=== PATIENT | male | born 1950 | race Caucasian/White ===

== ENCOUNTER 2018-06-07 16:55 | Inpatient (IN) ==
--- NOTE | 2018-06-07 17:50 | ED ---
HPI General Chief Complaint: Abdominal Pain Stated Complaint: Upper Abd Pain/Rt Side x3Days Source: patient Mode of arrival: ambulatory Limitations: no limitations History of Present Illness HPI narrative: Patient presents with complaints of right upper quadrant abdominal pain. States his gallbladder. States he has a history of cirrhosis and hepatosplenomegaly from heavy drinking and read reports evaluation by his PCP on Saturday which is where he states he was told it was his gallbladder. States he was told to present to the emergency room with any persistent abdominal pain. Reports initial nausea at onset of pain on Saturday that is no longer present. Reports mild difficulty with constipation. Denies any chest pain shortness of breath or urinary symptoms. Last meal at noon. complaint: abdominal pain Onset (ago): day(s) (5-6) Pain Consistency: constant Location: RUQ Severity: moderate Severity scale (1-10): 5 Quality: aching and fullness Radiation: none Migration to: no migration Relieving factors: nothing Exacerbating factors: eating Context: other (Denies foreign travel new foods picnics sick contacts recent antibiotics hospitalization) Associated symptoms: constipation and other (Initially with nausea and an episode of vomiting, none since) Treatments prior to arrival: other (none) Related Data Home Medications Medication Instructions Recorded Confirmed glipizide 5 mg PO BID 06/07/18 06/07/18 insulin glargine [Lantus U-100 30 unit SUB-Q HS 06/07/18 06/07/18 Insulin] levothyroxine 100 mcg PO DAILY 06/07/18 06/07/18 losartan 50 mg PO DAILY 06/07/18 06/07/18 nadolol 200 mg PO BID 06/07/18 06/07/18 pravastatin 80 mg PO DAILY 06/07/18 06/07/18 rifaximin [Xifaxan] 550 mg PO BID 06/07/18 06/07/18 Allergies Allergy/AdvReac Type Severity Reaction Status Date / Time adhesive tape AdvReac Itching Verified 06/07/18 17:10 Review of Systems ROS: all other systems reviewed are negative [facility] Medical History Medical History Diabetes (Acute) Surgical History Surgical History Hx of appendectomy (Acute) Social History Social History Substance History: No History of Abuse Smoking Status: Never smoker How Often Do You Have a Drink Containing Alcohol: 2 to 4 times a month Recent Out of Country Travel within the Last 8 Weeks: No Immunization History Tetanus Immunization: Unsure Hx Influenza Vaccine This Season: Yes Exam Narrative Exam Narrative: GENERAL: Well-nourished, well-developed patient. SKIN: Focused skin assessment warm/dry. HEAD: Normocephalic. EYES: No scleral icterus. No injection or drainage. NECK: Supple, trachea midline. No JVD or lymphadenopathy. CARDIOVASCULAR: Regular rate and rhythm without murmurs, gallops, or rubs. RESPIRATORY: Breath sounds equal bilaterally. No accessory muscle use. GASTROINTESTINAL: Mildly distended, guarding with tenderness right upper quadrant, positive bowel sounds, no splenomegaly, unable to palpate the liver MUSCULOSKELETAL: No cyanosis, or edema. BACK: Nontender without obvious deformity. No CVA tenderness. Course Initial Documented Vital Signs Temperature 98.9 F 06/07/18 16:58 Pulse Rate 60 06/07/18 16:58 Respiratory Rate 18 06/07/18 16:58 Blood Pressure 144/66 H 06/07/18 16:58 Pulse Oximetry 97 06/07/18 16:58 Last Documented Vital Signs Temperature 98.9 F 06/07/18 16:58 Pulse Rate 60 06/07/18 16:58 Respiratory Rate 18 06/07/18 16:58 Blood Pressure 144/66 H 06/07/18 16:58 Pulse Oximetry 96 06/07/18 17:40 Medical Decision Making MDM Narrative Medical decision making narrative: Assessment and plan discussed with patient at bedside. Labs and imaging discussed with patient. Spoke with Dr. Mata was in agreement for admission and evaluation for surgical cholecystectomy. Spoke with Dr. Alvarado who is in agreement will admit. Medical Screen Exam Complete: Yes Emergency Medical Condition: Yes Medical Records Medical records reviewed: Yes I reviewed the patient's medical records. Lab Data Lab results reviewed: Yes I reviewed the patient's lab results. Result diagrams: 06/07/18 17:49 06/07/18 17:49 Lab Results 06/07/18 06/07/18 06/07/18 Range/Units 17:49 17:49 17:52 CBC w Diff Auto diff final WBC 13.2 H (4.0-11.0) th/mm3 RBC 3.71 L (4.50-5.90) mil/mm3 Hgb 12.8 L (13.0-17.0) gm/dL Hct 35.8 L (39.0-51.0) % MCV 96.5 (80.0-100.0) fL MCH 34.3 H (27.0-34.0) pg MCHC 35.6 (32.0-36.0) % RDW 12.8 (11.6-17.2) % Plt Count 118 L (150-450) th/mm3 MPV 10.0 (7.0-11.0) fL Neut % (Auto) 70.3 H (16.0-70.0) % Lymph % (Auto) 12.1 (9.0-44.0) % [place] % (Auto) 13.9 H (0.0-8.0) % Eos % (Auto) 2.7 (0.0-4.0) % Baso % (Auto) 1.0 (0.0-2.0) % Neut # (Auto) 9.3 H (1.8-7.7) th/mm3 Lymph # (Auto) 1.6 (1.0-4.8) th/mm3 [place] # (Auto) 1.8 H (0.0-0.9) th/mm3 Eos # (Auto) 0.4 (0.0-0.4) th/mm3 Baso # (Auto) 0.1 (0.0-0.2) th/mm3 WBC Differential . Differential Comment . Sodium 139 (136-145) meq/L Potassium 3.8 (3.5-5.1) meq/L Chloride 106 (98-107) meq/L Carbon Dioxide 24.3 (21.0-32.0) meq/L Anion Gap 9 (5-15) meq/L BUN 25 H (7-18) mg/dL Creatinine 1.30 (0.60-1.30) mg/dL Estimated GFR 55 L (>89) mL/min Random Glucose 116 H (74-106) mg/dL Lactic Acid 2.2 H (0.4-2.0) mmol/L Calcium 8.7 (8.5-10.1) mg/dL Total Bilirubin 1.9 H (0.2-1.0) mg/dL AST 30 (15-37) U/L ALT 41 (12-78) U/L Alkaline Phosphatase 88 (45-117) U/L Total Protein 7.6 (6.4-8.2) g/dL Albumin 3.7 (3.4-5.0) g/dL Lipase 180 (73-393) U/L Ur Collection Type Urine Color (Yellw/Straw) Urine Clarity (Clear) Urine pH (5.0-8.5) Ur Specific [place] (1.002-1.035) Urine Protein (Neg-Trace) mg/dL Urine Glucose (UA) (Negative) mg/dL Urine Ketones (Negative) mg/dL Urine Occult Blood (Negative) Urine Nitrate (Negative) Urine Bilirubin (Negative) Urine Urobilinogen (Less than 2) mg/dL Ur Leukocyte Esterase (Negative) Ur Squamous Epith Cells (0-5) /hpf Amorphous Sediment (None) /hpf Micro UA Comment Ur Microscopic Review Urine Culture Comments Urine Collection Time hours 06/07/18 Range/Units 17:53 CBC w Diff WBC (4.0-11.0) th/mm3 RBC (4.50-5.90) mil/mm3 Hgb (13.0-17.0) gm/dL Hct (39.0-51.0) % MCV (80.0-100.0) fL MCH (27.0-34.0) pg MCHC (32.0-36.0) % RDW (11.6-17.2) % Plt Count (150-450) th/mm3 MPV (7.0-11.0) fL Neut % (Auto) (16.0-70.0) % Lymph % (Auto) (9.0-44.0) % [place] % (Auto) (0.0-8.0) % Eos % (Auto) (0.0-4.0) % Baso % (Auto) (0.0-2.0) % Neut # (Auto) (1.8-7.7) th/mm3 Lymph # (Auto) (1.0-4.8) th/mm3 [place] # (Auto) (0.0-0.9) th/mm3 Eos # (Auto) (0.0-0.4) th/mm3 Baso # (Auto) (0.0-0.2) th/mm3 WBC Differential Differential Comment Sodium (136-145) meq/L Potassium (3.5-5.1) meq/L Chloride (98-107) meq/L Carbon Dioxide (21.0-32.0) meq/L Anion Gap (5-15) meq/L BUN (7-18) mg/dL Creatinine (0.60-1.30) mg/dL Estimated GFR (>89) mL/min Random Glucose (74-106) mg/dL Lactic Acid (0.4-2.0) mmol/L Calcium (8.5-10.1) mg/dL Total Bilirubin (0.2-1.0) mg/dL AST (15-37) U/L ALT (12-78) U/L Alkaline Phosphatase (45-117) U/L Total Protein (6.4-8.2) g/dL Albumin (3.4-5.0) g/dL Lipase (73-393) U/L Ur Collection Type Clean catch Urine Color Yellow (Yellw/Straw) Urine Clarity Clear (Clear) Urine pH 6.0 (5.0-8.5) Ur Specific [place] 1.010 (1.002-1.035) Urine Protein Negative (Neg-Trace) mg/dL Urine Glucose (UA) Negative (Negative) mg/dL Urine Ketones Negative (Negative) mg/dL Urine Occult Blood Negative (Negative) Urine Nitrate Negative (Negative) Urine Bilirubin Negative (Negative) Urine Urobilinogen 4.0 H (Less than 2) mg/dL Ur Leukocyte Esterase Negative (Negative) Ur Squamous Epith Cells 0-5 (0-5) /hpf Amorphous Sediment Few H (None) /hpf Micro UA Comment Culture not ind Ur Microscopic Review Microscopic reviewed Urine Culture Comments Culture not ind Urine Collection Time 1755 hours Imaging Data Radiologist's impression: Abdomen/Pelvis CT 06/07/18 17:40 CONCLUSION: 1. Abnormal hepatic texture characteristic of chronic parenchymal liver disease possibly cirrhosis. 2. Free fluid along the anterolateral margin of the liver characteristic of mild ascites. 3. Ellie hepatis lymphadenopathy 4. Distended gallbladder with mild pericholecystic inflammation. Acute cholecystitis needs to be considered. 5. Splenomegaly 6. Mesenteric vascular congestion and mild of adenopathy Discharge Plan Discharge Disposition Patient Disposition: 30 Still Patient Discharge Details Diagnosis: Cholecystitis Physicians Team ED Provider: Orlando Francois Primary Care Provider: Yaw Ugarte Rxs /Orders / Referrals /Forms Prescriptions: No Action losartan 50 mg Tablet 50 mg PO DAILY RF: 0 insulin glargine [Lantus U-100 Insulin] 100 unit/mL Solution 30 unit SUB-Q HS RF: 0 pravastatin 80 mg Tablet 80 mg PO DAILY RF: 0 glipizide 5 mg Tablet 5 mg PO BID RF: 0 levothyroxine 100 mcg Capsule 100 mcg PO DAILY RF: 0 nadolol 20 mg Tablet 200 mg PO BID RF: 0 rifaximin [Xifaxan] 550 mg Tablet 550 mg PO BID RF: 0 Discharge Interventions Interventions: Vital Signs Last Done: 06/07/18 16:58 Status ED Status: With Nurse
[2018-06-07 17:56] LABS: Baso # (Auto) 0.1 th/mm3 (0.0-0.2); Eos # (Auto) 0.4 th/mm3 (0.0-0.4); Eos % (Auto) 2.7 % (0.0-4.0); Hematocrit 35.8 % (39.0-51.0); Hemoglobin 12.8 gm/dL (13.0-17.0); Lymph # (Auto) 1.6 th/mm3 (1.0-4.8); Lymph % (Auto) 12.1 % (9.0-44.0); Mean Corpuscular HGB Conc 35.6 % (32.0-36.0); Mean Corpuscular Hemoglobin 34.3 pg (27.0-34.0); Mean Corpuscular Volume 96.5 fL (80.0-100.0); Mono # (Auto) 1.8 th/mm3 (0.0-0.9); Mono % (Auto) 13.9 % (0.0-8.0); Neut # (Auto) 9.3 th/mm3 (1.8-7.7); Neut % (Auto) 70.3 % (16.0-70.0); Platelet Count 118 th/mm3 (150-450); Red Blood Count 3.71 mil/mm3 (4.50-5.90); Red Cell Distribution Width 12.8 % (11.6-17.2); White Blood Count 13.2 th/mm3 (4.0-11.0)
[2018-06-07 17:57] LABS: Bilirubin,Urine Negative (Negative); Clarity,Urine Clear (Clear); Color,Urine Yellow (Yellw/Straw); Glucose,Urine (UA) Negative (Negative); Leukocyte Esterase,Urine Negative (Negative); Nitrite,Urine Negative (Negative)
[2018-06-07 18:01] LABS: Collection Time,Urine 1755 hours
[2018-06-07 18:02] LABS: Amorphous Sediment,Urine Few /hpf; Squamous Epithelial Cell,Urine 0-5 /hpf (0-5)
[2018-06-07 18:07] LABS: Chloride 106 meq/L (98-107); Potassium 3.8 meq/L (3.5-5.1); Sodium 139 meq/L (136-145)
[2018-06-07 18:10] LABS: Calcium 8.7 mg/dL (8.5-10.1)
[2018-06-07 18:11] LABS: Albumin 3.7 g/dL (3.4-5.0); Anion Gap 9 meq/L (5-15); Blood Urea Nitrogen 25 mg/dL (7-18); Carbon Dioxide 24.3 meq/L (21.0-32.0); Glucose,Random 116 mg/dL (74-106); Lipase 180 U/L (73-393)
[2018-06-07 18:13] LABS: Alanine Aminotransferase 41 U/L (12-78); Aspartate Aminotransferase 30 U/L (15-37); Glomerular Filtration Rate 55 mL/min (>89)
[2018-06-07 18:15] LABS: Total Protein 7.6 g/dL (6.4-8.2)
[2018-06-07 18:16] LABS: Alkaline Phosphatase 88 U/L (45-117)
--- NOTE | 2018-06-07 19:51 | CT ---
EXAM DATE: 06/07/2018 7:36 PM EDT AGE/SEX: 67 years / Male INDICATIONS: Right upper quadrant pain. CLINICAL DATA: This is the patient's initial encounter. Patient reports that signs and symptoms have been present for 1 day and indicates a pain score of 10/10. MEDICAL/SURGICAL HISTORY: Diabetes. Appendectomy. ORAL CONTRAST: No oral contrast ingested. RADIATION DOSE: 19.17 CTDI (mGy) COMPARISON: No prior exams available for comparison. TECHNIQUE: Multiple contiguous axial images were obtained through the abdomen and pelvis following b olus infusion of 68 ml Omnipaque 350 (iohexol) nonionic water-soluble contrast as a single exam dos e. No oral contrast ingested. Using automated exposure control and adjustment of the mA and/or kV ac cording to patient size, radiation dose was kept as low as reasonably achievable to obtain optimal di agnostic quality images. DICOM format image data is available electronically for review and comparis on. FINDINGS: Lower Lungs: Chronic lung changes are noted. The heart is moderately enlarged. Coronary arteries are heavily calcified. Liver: Small amount of fluid is seen along the right anterolateral capsular margin of the liver. Live r has a slight heterogeneous texture. The gallbladder is distended and demonstrates mild wall thicken ing and pericholecystic fluid and stranding. Multiple mildly enlarged lymph nodes are identified in t he ellie hepatis. There is no significant biliary distention or discrete hepatic mass.. Spleen: Mildly enlarged. Pancreas: Unremarkable without mass or calcification. Kidneys: Normal in size and shape. No evidence of mass or hydronephrosis. Adrenal Glands: Unremarkable. Aorta: The aorta and proximal iliac vessels are grossly unremarkable without aneurysmal dilation. Bowel/Mesentery: Diffuse vascular prominence and multiple lymph nodes are seen throughout the mesente ry. The bowel loops are otherwise grossly unremarkable. The cecum and sigmoid colon have a normal con figuration. Abdominal Wall: Intact. Retroperitoneum: No evidence of adenopathy in the retrocrural, para-aortic, or deep pelvic regions. Bladder: Contours are smooth. Reproductive Organs: No abnormal masses or calcifications seen. Inguinal: The inguinal region is unremarkable without evidence of adenopathy. Bony Structures: Unremarkable. CONCLUSION: 1. Abnormal hepatic texture characteristic of chronic parenchymal liver disease possibly cirrhosis. 2. Free fluid along the anterolateral margin of the liver characteristic of mild ascites. 3. Ellie hepatis lymphadenopathy 4. Distended gallbladder with mild pericholecystic inflammation. Acute cholecystitis needs to be con sidered. 5. Splenomegaly 6. Mesenteric vascular congestion and mild of adenopathy Electronically signed by: Giorgio Brown MD 06/07/2018 7:49 PM EDT
[2018-06-07] MEDS ORDERED: Bisacodyl 10 MG Supp RECTAL PRN (20:29)
[2018-06-07 21:00] LABS: Activated Partial Thrombo Time 31.3 sec (24.3-30.1); INR 1.2 Ratio; Prothrombin Time 11.9 sec (9.8-11.6)
[2018-06-07] MEDS ORDERED: Piperacil/Tazo 3.375 GM Premix 50 ML IV.SIG SCH (21:15)
[2018-06-07] MEDS: Senna/Docusate Sodium 8.6/50 MG Tablet PO SCH (23:20)
[2018-06-07] MEDS: KCL 20 mEq/D5W/NaCl 0.45% Inj 1,000 ML IV.CONT SCH (23:20)
[2018-06-07] MEDS: Sod Chloride 0.9% Inj 1,000 ML IV.CONT SCH (23:50)
[2018-06-07] MEDS: Piperacil/Tazo 4.5 GM Premix 4.5 GM/100 ML BAG IV.SIG SCH (23:50)
[2018-06-08] MEDS: Morphine Inj 4 MG/ML Vial IV.PUSH PRN ×4 (01:55→23:32)
[2018-06-08] MEDS: Piperacil/Tazo 4.5 GM Premix 4.5 GM/100 ML BAG IV.SIG SCH ×5 (03:02→23:32)
[2018-06-08 07:05] LABS: Baso % (Auto) 0.3 % (0.0-2.0); Eos # (Auto) 0.2 th/mm3 (0.0-0.4); Eos % (Auto) 1.8 % (0.0-4.0); Hematocrit 35.3 % (39.0-51.0); Hemoglobin 12.2 gm/dL (13.0-17.0); Lymph # (Auto) 1.3 th/mm3 (1.0-4.8); Lymph % (Auto) 9.5 % (9.0-44.0); Mean Corpuscular HGB Conc 34.4 % (32.0-36.0); Mean Corpuscular Volume 95.8 fL (80.0-100.0); Mean Platelet Volume 10.6 fL (7.0-11.0); Mono # (Auto) 1.7 th/mm3 (0.0-0.9); Mono % (Auto) 12.9 % (0.0-8.0); Neut # (Auto) 10.2 th/mm3 (1.8-7.7); Neut % (Auto) 75.5 % (16.0-70.0); Platelet Count 128 th/mm3 (150-450); Red Blood Count 3.69 mil/mm3 (4.50-5.90); Red Cell Distribution Width 12.7 % (11.6-17.2); White Blood Count 13.4 th/mm3 (4.0-11.0)
[2018-06-08 07:17] LABS: Chloride 109 meq/L (98-107); Potassium 3.5 meq/L (3.5-5.1); Sodium 142 meq/L (136-145)
[2018-06-08] MEDS: KCL 20 mEq/D5W/NaCl 0.45% Inj 1,000 ML IV.CONT SCH ×2 (07:20→15:44)
[2018-06-08 07:21] LABS: Albumin 3.2 g/dL (3.4-5.0); Anion Gap 9 meq/L (5-15); Blood Urea Nitrogen 21 mg/dL (7-18); Calcium 8.3 mg/dL (8.5-10.1); Carbon Dioxide 23.8 meq/L (21.0-32.0); Glucose,Random 57 mg/dL (74-106)
[2018-06-08 07:24] LABS: Alanine Aminotransferase 38 U/L (12-78); Aspartate Aminotransferase 29 U/L (15-37); Glomerular Filtration Rate 55 mL/min (>89)
[2018-06-08 07:26] LABS: Total Protein 7.2 g/dL (6.4-8.2)
[2018-06-08 07:27] LABS: Alkaline Phosphatase 90 U/L (45-117)
[2018-06-08] MEDS: Senna/Docusate Sodium 8.6/50 MG Tablet PO SCH ×2 (08:45→20:45)
--- NOTE | 2018-06-08 09:55 | P.HP ---
History of Present Illness Primary Care Physician: Yaw Ugarte DO Chief Complaint: Right upper quadrant abdominal pain History of Present Illness: This is a 67-year-old male patient with a known medical history of cirrhosis and hepatosplenomegaly with history of heavy alcohol abuse who presented to the ED with complaints of right upper quadrant abdominal pain. Patient states around Saturday morning after he ate some eggs with butter he developed a sudden right upper quadrant pain. He states that he been unable to eat for the past 4 days without significant pain and associated nausea. He denies any vomiting. Patient does admit to fever at home of 101 at its max. Does state he was evaluated by his PCP, Dr. Ugarte, on Saturday when at that time he was told this may be a gallbladder issue. At that time he was sent home and encouraged to come to the emergency room if abdominal pain persisted. Denies any recent antibiotic use. Patient denies any recent black or bloody stools. Last colonoscopy was 2 years ago with findings significant for polyps. Patient does admit to history of cirrhosis and hepatosplenomegaly secondary to history of chronic alcohol abuse. Patient does follow with Dr. Garcia for his chronic liver disease and actually has a colonoscopy scheduled for June. He states he has cut down his alcohol to 3 glasses per week. Patient denies any recent illness including chest pain, chills, cough, shortness breath, diarrhea or dysuria. Upon presentation an abdominal/pelvis CT was done showing concern for acute cholecystitis. General surgery has been consulted for evaluation. - Diagnosis (1) Cholecystitis (2) Cirrhosis (3) Hepatosplenomegaly (4) History of alcohol abuse (5) Diabetes type 2, controlled Inpatient Certification: I certify that the inpatient services were ordered in accordance with Medicare regulations governing the order. This includes certification that hospital inpatient services are reasonable and necessary and in the case of services not specified as inpatient-only under 42 CFR 419.22(n), that they are appropriately provided as inpatient services in accordance to with the 2-midnight benchmark under 43 CFR 412.3(e) Estimated Total Length of Stay (Days): 2 Plans for Post Hospital Care: Not yet determined Review of Systems All other systems reviewed negative except as stated in [facility] - History History Provided By: Patient - Medical History Medical History: Medical History (Last Updated 06/08/18 @ 10:38 by Precious Cai) Cirrhosis Diabetes Hepatosplenomegaly History of alcohol abuse - Surgical History Surgical History: Surgical History (Last Updated 06/08/18 @ 10:37 by Precious Cai) History of arthroplasty of right knee History of hand surgery Hx of appendectomy - Family History Family History: Family History (Last Updated 06/08/18 @ 10:38 by Precious Cai) Father Cardiovascular disease Mother Diabetes - Tobacco History Second Hand Smoke Exposure: No Smoking Status: Never smoker - Alcohol History How Often Do You Have a Drink Containing Alcohol: 2 to 3 times a week - Substance Use History Substance History: Past History - Travel History History of Recent Travel: No Recent Travel in the [place] Within the Last 8 Weeks: No Recent Travel Out of the Country Within the Last 8 Weeks: No - Immunization History Tetanus Immunization: <5 Years Hx Influenza Vaccine This Season: No Medications and Allergies Active Medications: Active Medications Al Hydroxide/Mg Hydroxide (Milk Of Magnesia Liq) 30 ml PO Q12H PRN PRN Reason: Mild Constipation Bisacodyl (Dulcolax Supp) 10 mg RECTAL DAILY PRN PRN Reason: SEVERE CONSITIPATION Sodium Chloride (Ns Inj) 1,000 mls @ 100 mls/hr IV.CONT .Q10H [facility] Last Admin: 06/07/18 23:50 Dose: 100 mls/hr Potassium Chloride/Dextrose/Sod Cl (D5w/1/2ns + Kcl 20 Meq Inj) 1,000 mls @ 100 mls/hr IV.CONT .Q10H [facility] Last Admin: 06/08/18 07:20 Dose: Not Given Piperacillin/Tazobactam/Dextrose (Zosyn 4.5 Gm Premix) 4.5 gm in 100 mls @ 200 mls/hr IV.SIG Q6HR [facility] Last Infusion: 06/08/18 07:00 Dose: Infused Lactulose (Lactulose Liq) 30 ml PO DAILY PRN PRN Reason: SEVERE CONSITIPATION Morphine Sulfate (Morphine Inj) 2 mg IV.PUSH Q4H PRN PRN Reason: PAIN 6-10 Last Admin: 06/08/18 06:29 Dose: 2 mg Ondansetron HCl (Zofran Inj) 4 mg IV.PUSH Q6H PRN PRN Reason: NAUSEA OR VOMITING Senna/Docusate Sodium (Tia-Colace) 1 tab PO BID [facility] Last Admin: 06/08/18 08:45 Dose: Not Given Sennosides (Senokot) 17.2 mg PO Q12H PRN PRN Reason: Moderate Constipation Sodium Chloride (Ns Flush) 2 ml IV.FLUSH PRN PRN PRN Reason: FLUSH AFTER USING IV ACCESS Allergies Allergy/AdvReac Type Severity Reaction Status Date / Time adhesive tape AdvReac Itching Verified 06/07/18 17:10 Home Medications Medication Instructions Recorded Confirmed Type glipizide 5 mg PO BID 06/07/18 06/07/18 History insulin glargine [Lantus U-100 30 unit SUB-Q HS 06/07/18 06/07/18 History Insulin] levothyroxine 100 mcg PO DAILY 06/07/18 06/07/18 History losartan 50 mg PO DAILY 06/07/18 06/07/18 History nadolol 200 mg PO BID 06/07/18 06/07/18 History pravastatin 80 mg PO DAILY 06/07/18 06/07/18 History rifaximin [Xifaxan] 550 mg PO BID 06/07/18 06/07/18 History Exam Vital signs: Vital Signs 06/07/18 16:58 06/07/18 17:40 06/07/18 20:41 Temperature 98.9 F Pulse Rate 60 Respiratory Rate 18 15 Blood Pressure 144/66 H Pulse Oximetry 97 96 06/07/18 22:43 06/07/18 23:30 06/08/18 04:00 Temperature 97.4 F L 98 F Pulse Rate 78 67 64 Respiratory Rate 14 20 20 Blood Pressure 147/74 H 153/70 H 112/62 Pulse Oximetry 97 97 06/08/18 08:00 Temperature 98.2 F Pulse Rate 57 L Respiratory Rate 12 Blood Pressure 108/67 Pulse Oximetry 93 L Intake & Output 06/07/18 06/08/18 06/08/18 18:59 06:59 18:59 Intake Total 100 / 100 100 / 100 Balance 100 / 100 100 / 100 Weight 93.6 kg 94.2 kg Intake: IV 100 / 100 100 / 100 Zosyn 4.5 GM Premix 4.5 gm In 100 / 100 100 / 100 100 ml @ 200 mls/hr IV.SIG Q6HR [facility] Rx#:[id number] Other: Weight On Admission 94.4 kg Narrative: GENERAL: Well-developed, well-nourished patient in NAD. SKIN: Warm and dry. No rash. HEAD: Normocephalic. Atraumatic. EYES: Pupils equal and round. No scleral icterus. No injection or drainage. ENT: No nasal bleeding or discharge. Mucous membranes pink and moist. NECK: Supple. Trachea midline. CARDIOVASCULAR: Regular rate and rhythm. S1, S2 noted. No murmur appreciated. RESPIRATORY: No accessory muscle use. Clear to auscultation. Breath sounds equal bilaterally. GASTROINTESTINAL: Abdomen firm, tender to palpation of right upper quadrant. Normoactive bowel sounds x4. Liver border felt and enlarged. Previous appendectomy scar noted. MUSCULOSKELETAL: No obvious deformities. Extremities without clubbing, cyanosis , or edema. NEUROLOGICAL: Awake and alert. No obvious cranial nerve deficits. Motor grossly within normal limits. 5/5 muscle strength in bilateral upper and lower extremities. Normal speech. PSYCHIATRIC: Appropriate mood and affect; insight and judgment normal. Results - Labs CBC & Chem 7: 06/08/18 06:35 06/08/18 06:35 Labs: Laboratory Results - last 24 hr 06/07/18 06/07/18 06/07/18 17:49 17:49 17:52 CBC w Diff Auto diff final WBC 13.2 H RBC 3.71 L Hgb 12.8 L Hct 35.8 L MCV 96.5 MCH 34.3 H MCHC 35.6 RDW 12.8 Plt Count 118 L MPV 10.0 Neut % (Auto) 70.3 H Lymph % (Auto) 12.1 [place] % (Auto) 13.9 H Eos % (Auto) 2.7 Baso % (Auto) 1.0 Neut # (Auto) 9.3 H Lymph # (Auto) 1.6 [place] # (Auto) 1.8 H Eos # (Auto) 0.4 Baso # (Auto) 0.1 WBC Differential . Differential Comment . PT INR APTT Sodium 139 Potassium 3.8 Chloride 106 Carbon Dioxide 24.3 Anion Gap 9 BUN 25 H Creatinine 1.30 Estimated GFR 55 L Random Glucose 116 H Lactic Acid 2.2 H Calcium 8.7 Total Bilirubin 1.9 H AST 30 ALT 41 Alkaline Phosphatase 88 Total Protein 7.6 Albumin 3.7 Lipase 180 Ur Collection Type Urine Color Urine Clarity Urine pH Ur Specific [place] Urine Protein Urine Glucose (UA) Urine Ketones Urine Occult Blood Urine Nitrate Urine Bilirubin Urine Urobilinogen Ur Leukocyte Esterase Ur Squamous Epith Cells Amorphous Sediment Micro UA Comment Ur Microscopic Review Urine Culture Comments Urine Collection Time 06/07/18 06/07/18 06/08/18 17:53 20:20 06:35 CBC w Diff Auto diff final WBC 13.4 H RBC 3.69 L Hgb 12.2 L Hct 35.3 L MCV 95.8 MCH 33.0 MCHC 34.4 RDW 12.7 Plt Count 128 L MPV 10.6 Neut % (Auto) 75.5 H Lymph % (Auto) 9.5 [place] % (Auto) 12.9 H Eos % (Auto) 1.8 Baso % (Auto) 0.3 Neut # (Auto) 10.2 H Lymph # (Auto) 1.3 [place] # (Auto) 1.7 H Eos # (Auto) 0.2 Baso # (Auto) 0.0 WBC Differential . Differential Comment . PT 11.9 H INR 1.2 APTT 31.3 H Sodium Potassium Chloride Carbon Dioxide Anion Gap BUN Creatinine Estimated GFR Random Glucose Lactic Acid Calcium Total Bilirubin AST ALT Alkaline Phosphatase Total Protein Albumin Lipase Ur Collection Type Clean catch Urine Color Yellow Urine Clarity Clear Urine pH 6.0 Ur Specific [place] 1.010 Urine Protein Negative Urine Glucose (UA) Negative Urine Ketones Negative Urine Occult Blood Negative Urine Nitrate Negative Urine Bilirubin Negative Urine Urobilinogen 4.0 H Ur Leukocyte Esterase Negative Ur Squamous Epith Cells 0-5 Amorphous Sediment Few H Micro UA Comment Culture not ind Ur Microscopic Review Microscopic reviewed Urine Culture Comments Culture not ind Urine Collection Time 1755 06/08/18 06:35 CBC w Diff WBC RBC Hgb Hct MCV MCH MCHC RDW Plt Count MPV Neut % (Auto) Lymph % (Auto) [place] % (Auto) Eos % (Auto) Baso % (Auto) Neut # (Auto) Lymph # (Auto) [place] # (Auto) Eos # (Auto) Baso # (Auto) WBC Differential Differential Comment PT INR APTT Sodium 142 Potassium 3.5 Chloride 109 H Carbon Dioxide 23.8 Anion Gap 9 BUN 21 H Creatinine 1.30 Estimated GFR 55 L Random Glucose 57 L Lactic Acid Calcium 8.3 L Total Bilirubin 2.4 H AST 29 ALT 38 Alkaline Phosphatase 90 Total Protein 7.2 Albumin 3.2 L Lipase Ur Collection Type Urine Color Urine Clarity Urine pH Ur Specific [place] Urine Protein Urine Glucose (UA) Urine Ketones Urine Occult Blood Urine Nitrate Urine Bilirubin Urine Urobilinogen Ur Leukocyte Esterase Ur Squamous Epith Cells Amorphous Sediment Micro UA Comment Ur Microscopic Review Urine Culture Comments Urine Collection Time - Imaging Impressions Abdomen/Pelvis CT 06/07/18 17:40 CONCLUSION: 1. Abnormal hepatic texture characteristic of chronic parenchymal liver disease possibly cirrhosis. 2. Free fluid along the anterolateral margin of the liver characteristic of mild ascites. 3. Sharon hepatis lymphadenopathy 4. Distended gallbladder with mild pericholecystic inflammation. Acute cholecystitis needs to be considered. 5. Splenomegaly 6. Mesenteric vascular congestion and mild of adenopathy Caprini VTE Risk Assessment Caprini VTE Risk Assessment: Moderate/High Risk (score >= 2) Caprini Risk Assessment Model: Point Value = 1 Point Value = 2 Point Value = 3 Point Value = 5 Age 41-60 Minor surgery BMI > 25 kg/m2 Swollen legs Varicose veins or History of unexplained or recurrent spontaneous Oral contraceptives or hormone replacement Sepsis (< 1 month) Serious lung disease, including pneumonia (< 1 month) Abnormal pulmonary function Acute myocardial infarction Congestive heart failure (< 1 month) History of inflammatory bowel disease Medical patient at bed rest Age 61-74 Arthroscopic surgery Major open surgery (> 45 min) Laparoscopic surgery (> 45 min) Malignancy Confined to bed (> 72 hours) Immobilizing plaster cast Central venous access Age >= 75 History of VTE Family history of VTE Factor V Leiden Prothrombin [id number] Lupus anticoagulant Anticardiolipin antibodies Elevated serum homocysteine Heparin-induced thrombocytopenia Other congenital or acquired thrombophilia Stroke (< 1 month) Elective arthroplasty Hip, pelvis, or leg fracture Acute spinal cord injury (< 1 month) Prophylaxis Regimen: Total Risk Factor Score Risk Level Prophylaxis Regimen 0-1 Low Early ambulation 2 Moderate Order ONE of the following: *Sequential Compression Device (SCD) *Heparin 5000 units SQ BID 3-4 Higher Order ONE of the following medications: *Heparin 5000 units SQ TID *Enoxaparin/Lovenox 40 mg SQ daily (WT < 150 kg, CrCl > 30 mL/min) *Enoxaparin/Lovenox 30 mg SQ daily (WT < 150 kg, CrCl > 10-29 mL/min) *Enoxaparin/Lovenox 30 mg SQ BID (WT < 150 kg, CrCl > 30 mL/min) AND/OR *Sequential Compression Device (SCD) 5 or more Highest Order ONE of the following medications: *Heparin 5000 units SQ TID (Preferred with Epidurals) *Enoxaparin/Lovenox 40 mg SQ daily (WT < 150 kg, CrCl > 30 mL/min) *Enoxaparin/Lovenox 30 mg SQ daily (WT < 150 kg, CrCl > 10-29 mL/min) *Enoxaparin/Lovenox 30 mg SQ BID (WT < 150 kg, CrCl > 30 mL/min) AND *Sequential Compression Device (SCD) Assessment and Plan - Assessment (1) Cholecystitis Code(s): K81.9 - Cholecystitis, unspecified Status: Acute (2) Cirrhosis Code(s): K74.60 - Unspecified cirrhosis of liver Status: Acute (3) Hepatosplenomegaly Code(s): R16.2 - Hepatomegaly with splenomegaly, not elsewhere classified Status: Acute (4) History of alcohol abuse Code(s): Z87.898 - Personal history of other specified conditions Status: Acute (5) Diabetes type 2, controlled Code(s): E11.9 - Type 2 diabetes mellitus without complications Status: Acute - Plan This is a pleasant 67-year-old male patient with: Acute cholecystis -Patient presented with complaints of right upper quadrant pain x 4 days as well as subjective fever of 101 at home. -Abdominal/pelvis CT reviewed showing chronic liver disease and cirrhosis, mild ascited, sharon hepatis lymphadenopathy, splenomegaly and mesenteric vascular congestion. -Will obtain liver ultrasound for further evaluation, pending. Follow-up findings. -Patient with leukocytosis, white blood cell 13,000. Elevated total bilirubin 2.4. AST, ALT and alk phos normal. -Was placed on IV Zosyn in ED. Will continue for now. -General surgery consulted, input and recommendations pending. -Control pain, morphine IV available as needed per pain scale. -Zofran IV available for nausea as needed. History of cirrhosis and hepatosplenomegaly History of alcohol abuse -CT findings as above. -Will continue on home medications including nadolol, rifaximin. -Supportive care. Type 2 diabetes mellitus, controlled and chronic -Accu-Chek before meals at bedtime, sliding scale, cover as needed. Monitor blood sugar trends. -Evaluate for hypoglycemia, n.p.o. status. Continue IV dextrose for now. -Hold home glipizide. Hypothyroidism, chronic: Will continue home thyroxine. History of hyperlipidemia: On statin at home. Will hold for now. DVT Prophylaxis: SCDs.
[2018-06-08] MEDS: Sod Chloride 0.9% Inj 1,000 ML IV.CONT SCH (09:59)
[2018-06-08] MEDS ORDERED: Dextrose 50% in Water 50 ML Vial IV.PUSH PRN (10:54)
[2018-06-08] MEDS ORDERED: Nadolol 20 MG Tablet PO SCH (11:00)
[2018-06-08] MEDS: rifAXIMin 550 MG Tablet PO SCH ×2 (12:22→20:44)
[2018-06-08] MEDS: Insulin NovoLOG Aspart Correctional Sugar Inj SQ SCH ×3 (12:29→20:50)
--- NOTE | 2018-06-08 12:48 | P.CONGS ---
[facility] Gen Surgery Consult Note Consult date: 06/08/18 Narrative: The patient is a 67-year-old male who developed severe right upper quadrant abdominal pain on Saturday after eating eggs. The pain has persisted and he presented to the emergency department yesterday. He has never had a similar pain in the past. He did see his primary care physician later in the week who felt he likely had gallbladder disease and recommended to present to the emergency department if the pain worsened. The patient was noted to have leukocytosis as well as a CT of the abdomen and pelvis which appears to be consistent with acute cholecystitis. Past surgical history includes open appendectomy. The patient has a history of alcohol abuse and has known liver disease. 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 Bilirubin is mildly elevated although this could be partially secondary to cholecystitis. PT/INR mildly elevated as well. Review of Systems All other systems reviewed negative except as stated in [facility] PMFSH - History History Provided By: Patient - Medical History Medical History: Medical History (Last Updated 06/08/18 @ 10:38 by Precious Cai) Cirrhosis Diabetes Hepatosplenomegaly History of alcohol abuse - Surgical History Surgical History: Surgical History (Last Updated 06/08/18 @ 10:37 by Precious Cai) History of arthroplasty of right knee History of hand surgery Hx of appendectomy - Family History Family History: Family History (Last Updated 06/08/18 @ 10:38 by Precious Cai) Father Cardiovascular disease Mother Diabetes - Tobacco History Second Hand Smoke Exposure: No Smoking Status: Never smoker - Alcohol History How Often Do You Have a Drink Containing Alcohol: 2 to 3 times a week - Substance Use History Substance History: Past History - Travel History History of Recent Travel: No Recent Travel in the [place] Within the Last 8 Weeks: No Recent Travel Out of the Country Within the Last 8 Weeks: No - Immunization History Tetanus Immunization: <5 Years Hx Influenza Vaccine This Season: No Medications and Allergies Active Medications: Active Medications Al Hydroxide/Mg Hydroxide (Milk Of Magntrent Liq) 30 ml PO Q12H PRN PRN Reason: Mild Constipation Bisacodyl (Dulcolax Supp) 10 mg RECTAL DAILY PRN PRN Reason: SEVERE CONSITIPATION Dextrose (D50w Vial) 50 ml IV.PUSH UNSCH PRN PRN Reason: PER HYPOGLYCEMIA PROTOCOL Last Admin: 06/08/18 12:18 Dose: 50 ml Glucagon (Glucagon Inj) 1 mg OTHER PRN PRN PRN Reason: for Hypoglycemia Protocol Sodium Chloride (Ns Inj) 1,000 mls @ 100 mls/hr IV.CONT .Q10H [facility] Last Admin: 06/08/18 09:59 Dose: 100 mls/hr Potassium Chloride/Dextrose/Sod Cl (D5w/1/2ns + Kcl 20 Meq Inj) 1,000 mls @ 100 mls/hr IV.CONT .Q10H [facility] Last Admin: 06/08/18 07:20 Dose: Not Given Piperacillin/Tazobactam/Dextrose (Zosyn 4.5 Gm Premix) 4.5 gm in 100 mls @ 200 mls/hr IV.SIG Q6HR [facility] Last Admin: 06/08/18 12:23 Dose: 200 mls/hr Insulin Aspart (Novolog Insulin Correctional Sugar Inj) 0 unit SQ ACHS [facility]; Protocol Last Admin: 06/08/18 12:29 Dose: Not Given Lactulose (Lactulose Liq) 30 ml PO DAILY PRN PRN Reason: SEVERE CONSITIPATION Levothyroxine Sodium (Synthroid) 100 mcg PO DAILY@0600 [facility] Losartan Potassium (Cozaar) 50 mg PO DAILY [facility] Last Admin: 06/08/18 12:22 Dose: 50 mg Morphine Sulfate (Morphine Inj) 2 mg IV.PUSH Q4H PRN PRN Reason: PAIN 6-10 Last Admin: 06/08/18 06:29 Dose: 2 mg Nadolol (Corgard) 20 mg PO BID [facility] Ondansetron HCl (Zofran Inj) 4 mg IV.PUSH Q6H PRN PRN Reason: NAUSEA OR VOMITING Rifaximin (Xifaxan) 550 mg PO BID [facility] Last Admin: 06/08/18 12:22 Dose: 550 mg Senna/Docusate Sodium (Tia-Colace) 1 tab PO BID [facility] Last Admin: 06/08/18 08:45 Dose: Not Given Sennosides (Senokot) 17.2 mg PO Q12H PRN PRN Reason: Moderate Constipation Sodium Chloride (Ns Flush) 2 ml IV.FLUSH PRN PRN PRN Reason: FLUSH AFTER USING IV ACCESS Allergies Allergy/AdvReac Type Severity Reaction Status Date / Time adhesive tape AdvReac Itching Verified 08/25/18 17:10 Home Medications Medication Instructions Recorded Confirmed Type glipizide 5 mg PO BID 06/07/18 06/07/18 History insulin glargine [Lantus U-100 30 unit SUB-Q HS 06/07/18 06/07/18 History Insulin] levothyroxine 100 mcg PO DAILY 06/07/18 06/07/18 History losartan 50 mg PO DAILY 06/07/18 06/07/18 History nadolol 200 mg PO BID 06/07/18 06/07/18 History pravastatin 80 mg PO DAILY 06/07/18 06/07/18 History rifaximin [Xifaxan] 550 mg PO BID 06/07/18 06/07/18 History Exam Vital signs: Vital Signs 06/07/18 16:58 06/07/18 17:40 06/07/18 20:41 Temperature 98.9 F Pulse Rate 60 Respiratory Rate 18 15 Blood Pressure 144/66 H Pulse Oximetry 97 96 06/07/18 22:43 06/07/18 23:30 06/08/18 04:00 Temperature 97.4 F L 98 F Pulse Rate 78 67 64 Respiratory Rate 14 20 20 Blood Pressure 147/74 H 153/70 H 112/62 Pulse Oximetry 97 97 06/08/18 08:00 Temperature 98.2 F Pulse Rate 57 L Respiratory Rate 12 Blood Pressure 108/67 Pulse Oximetry 93 L Intake & Output 06/07/18 06/08/18 06/08/18 18:59 06:59 18:59 Intake Total 100 / 100 1100 / 1100 Balance 100 / 100 1100 / 1100 Weight 93.6 kg 94.2 kg Intake: IV 100 / 100 1100 / 1100 NS Inj 1,000 ML @ 100 mls/hr IV 1000 / 1000 .CONT .Q10H [facility] Rx#:[id number] Zosyn 4.5 GM Premix 4.5 gm In 100 / 100 100 / 100 100 ml @ 200 mls/hr IV.SIG Q6HR [facility] Rx#:[id number] Other: Date of Last Bowel Movement 05/30/18 Weight On Admission 94.4 kg Narrative: GENERAL: Awake and alert. No acute distress. Cooperative. HEAD: Normocephalic. Atraumatic. EYES: Pupils equal round and reactive to light bilaterally. No scleral icterus. ENT: Moist oral mucosa. NECK: Trachea midline. CHEST: Nonlabored breathing. No respiratory distress. CARDIOVASCULAR: Regular rate and rhythm. ABDOMEN: Mild distention. Right lower quadrant scar. Severe tenderness in the right upper quadrant with rebound. EXTREMITIES: No cyanosis or edema. SKIN: Warm, dry, nonjaundiced. Results - Labs 06/08/18 06:35 06/08/18 06:35 Abnormal lab results 06/07/18 06/07/18 06/07/18 Range/Units 17:49 17:49 17:52 WBC 13.2 H (4.0-11.0) th/mm3 RBC 3.71 L (4.50-5.90) mil/mm3 Hgb 12.8 L (13.0-17.0) gm/dL Hct 35.8 L (39.0-51.0) % MCH 34.3 H (27.0-34.0) pg Plt Count 118 L (150-450) th/mm3 Neut % (Auto) 70.3 H (16.0-70.0) % [place] % (Auto) 13.9 H (0.0-8.0) % Neut # (Auto) 9.3 H (1.8-7.7) th/mm3 [place] # (Auto) 1.8 H (0.0-0.9) th/mm3 PT (9.8-11.6) sec APTT (24.3-30.1) sec Chloride (98-107) meq/L BUN 25 H (7-18) mg/dL Estimated GFR 55 L (>89) mL/min Random Glucose 116 H (74-106) mg/dL Lactic Acid 2.2 H (0.4-2.0) mmol/L Calcium (8.5-10.1) mg/dL Total Bilirubin 1.9 H (0.2-1.0) mg/dL Albumin (3.4-5.0) g/dL Urine Urobilinogen (Less than 2) mg/dL Amorphous Sediment (None) /hpf 06/07/18 06/07/18 06/08/18 Range/Units 17:53 20:20 06:35 WBC 13.4 H (4.0-11.0) th/mm3 RBC 3.69 L (4.50-5.90) mil/mm3 Hgb 12.2 L (13.0-17.0) gm/dL Hct 35.3 L (39.0-51.0) % MCH (27.0-34.0) pg Plt Count 128 L (150-450) th/mm3 Neut % (Auto) 75.5 H (16.0-70.0) % [place] % (Auto) 12.9 H (0.0-8.0) % Neut # (Auto) 10.2 H (1.8-7.7) th/mm3 [place] # (Auto) 1.7 H (0.0-0.9) th/mm3 PT 11.9 H (9.8-11.6) sec APTT 31.3 H (24.3-30.1) sec Chloride (98-107) meq/L BUN (7-18) mg/dL Estimated GFR (>89) mL/min Random Glucose (74-106) mg/dL Lactic Acid (0.4-2.0) mmol/L Calcium (8.5-10.1) mg/dL Total Bilirubin (0.2-1.0) mg/dL Albumin (3.4-5.0) g/dL Urine Urobilinogen 4.0 H (Less than 2) mg/dL Amorphous Sediment Few H (None) /hpf 06/08/18 Range/Units 06:35 WBC (4.0-11.0) th/mm3 RBC (4.50-5.90) mil/mm3 Hgb (13.0-17.0) gm/dL Hct (39.0-51.0) % MCH (27.0-34.0) pg Plt Count (150-450) th/mm3 Neut % (Auto) (16.0-70.0) % [place] % (Auto) (0.0-8.0) % Neut # (Auto) (1.8-7.7) th/mm3 [place] # (Auto) (0.0-0.9) th/mm3 PT (9.8-11.6) sec APTT (24.3-30.1) sec Chloride 109 H (98-107) meq/L BUN 21 H (7-18) mg/dL Estimated GFR 55 L (>89) mL/min Random Glucose 57 L (74-106) mg/dL Lactic Acid (0.4-2.0) mmol/L Calcium 8.3 L (8.5-10.1) mg/dL Total Bilirubin 2.4 H (0.2-1.0) mg/dL Albumin 3.2 L (3.4-5.0) g/dL Urine Urobilinogen (Less than 2) mg/dL Amorphous Sediment (None) /hpf Diabetes panel 06/07/18 06/08/18 Range/Units 17:49 06:35 Sodium 139 142 (136-145) meq/L Potassium 3.8 3.5 (3.5-5.1) meq/L Chloride 106 109 H (98-107) meq/L Carbon Dioxide 24.3 23.8 (21.0-32.0) meq/L BUN 25 H 21 H (7-18) mg/dL Creatinine 1.30 1.30 (0.60-1.30) mg/dL Calcium 8.7 8.3 L (8.5-10.1) mg/dL AST 30 29 (15-37) U/L ALT 41 38 (12-78) U/L Alkaline Phosphatase 88 90 (45-117) U/L Total Protein 7.6 7.2 (6.4-8.2) g/dL Albumin 3.7 3.2 L (3.4-5.0) g/dL Calcium panel 06/07/18 06/08/18 Range/Units 17:49 06:35 Calcium 8.7 8.3 L (8.5-10.1) mg/dL Albumin 3.7 3.2 L (3.4-5.0) g/dL Pituitary panel 06/07/18 06/08/18 Range/Units 17:49 06:35 Sodium 139 142 (136-145) meq/L Potassium 3.8 3.5 (3.5-5.1) meq/L Chloride 106 109 H (98-107) meq/L Carbon Dioxide 24.3 23.8 (21.0-32.0) meq/L BUN 25 H 21 H (7-18) mg/dL Creatinine 1.30 1.30 (0.60-1.30) mg/dL Calcium 8.7 8.3 L (8.5-10.1) mg/dL Adrenal panel 06/07/18 06/08/18 Range/Units 17:49 06:35 Sodium 139 142 (136-145) meq/L Potassium 3.8 3.5 (3.5-5.1) meq/L Chloride 106 109 H (98-107) meq/L Carbon Dioxide 24.3 23.8 (21.0-32.0) meq/L BUN 25 H 21 H (7-18) mg/dL Creatinine 1.30 1.30 (0.60-1.30) mg/dL Calcium 8.7 8.3 L (8.5-10.1) mg/dL Total Bilirubin 1.9 H 2.4 H (0.2-1.0) mg/dL AST 30 29 (15-37) U/L ALT 41 38 (12-78) U/L Alkaline Phosphatase 88 90 (45-117) U/L Total Protein 7.6 7.2 (6.4-8.2) g/dL Albumin 3.7 3.2 L (3.4-5.0) g/dL All other labs normal. - Imaging CT scan - abdomen: report reviewed, image reviewed CT scan - pelvis: report reviewed, image reviewed Assessment and Plan - Assessment (1) Acute cholecystitis Code(s): K81.0 - Acute cholecystitis Status: Acute (2) Cirrhosis Code(s): K74.60 - Unspecified cirrhosis of liver Status: Acute - Plan The patient has acute cholecystitis having had pain for about 5 days. He has cirrhosis which based on lab work appears to be probably child naylor class A. Due to the length of time of his pain, the cirrhosis, and the apparent severe inflammation on CT, surgery would be somewhat high risk and I recommend cholecystostomy tube placement. I spoke with Dr. Nguyen of radiology on the phone and cholecystostomy tube will be placed tomorrow morning. The patient needs to be transferred to the main hospital today in order to be ready for the procedure early in the morning. I placed him on clear liquids and n.p.o. after midnight. Continue IV antibiotics. The patient may or may not require cholecystectomy in the future but for now the tube will remain in place for at least 3 weeks. I discussed this all in detail with the patient and his family.
[2018-06-08] MEDS: Nadolol 20 MG Tablet PO SCH ×2 (12:50→20:45)
--- NOTE | 2018-06-08 13:40 | US ---
EXAM DATE: 06/08/2018 1:34 PM EDT AGE/SEX: 67 years / Male INDICATIONS: Abdominal pain. CLINICAL DATA: This is the patient's initial encounter. Patient reports that signs and symptoms have been present for 3 days and indicates a pain score of 0/10. MEDICAL/SURGICAL HISTORY: . Cirrhosis. Diabetic. ETOH. Hepatosplenomegaly. . Right knee kwame jeremie. Hand surgery. Appendectomy. COMPARISON: [facility], CT ABDOMEN & PELVIS W CONTRAST, 06/07/2018. . MEASUREMENTS: Liver:__ 16.3 cm. Common Bile Duct:__ 15mm. Right Kidney:__ 12.2 x 4.9 x 6.8 cm. FINDINGS: Liver: Cirrhotic appearing liver with trace amount of ascites, primarily perihepatic fluid. Portal Vein: Hepatopedal flow seen in portal vein. Common Duct: Distended measuring up to 15 mm extending to the central common hepatic duct. Gallbladder: Gallbladder is distended containing debris with diffuse gallbladder wall thickening and trace pericholecystic fluid. Pancreas: The visualized portions are within normal limits Right Kidney: Normal echotexture and cortical thickness. No mass or hydronephrosis. Other: None. CONCLUSION: 1. Common bile duct is dilated in its visualized portions although no focal intraductal abnormality is noted by ultrasound. MRCP examination may be performed for better evaluation of the common bile du ct and to identify potential etiology of distal CBD obstruction. 2. Distended gallbladder containing debris with gallbladder wall thickening and pericholecystic flui d. Findings are consistent with acute cholecystitis in the appropriate clinical setting. 3. Cirrhotic liver with trace ascites. Electronically signed by: Rene Martin MD 06/08/2018 1:39 PM EDT
[2018-06-09] MEDS: Morphine Inj 4 MG/ML Vial IV.PUSH PRN ×2 (03:37→20:11)
[2018-06-09] MEDS: KCL 20 mEq/D5W/NaCl 0.45% Inj 1,000 ML IV.CONT SCH ×3 (03:37→23:01)
[2018-06-09] MEDS: Piperacil/Tazo 4.5 GM Premix 4.5 GM/100 ML BAG IV.SIG SCH ×4 (05:43→23:01)
[2018-06-09] MEDS: Levothyroxine 100 MCG Tablet PO SCH (05:45)
[2018-06-09] MEDS ORDERED: fentaNYL Citrate Inj 250 MCG/5 ML Ampul ONE (08:32)
[2018-06-09] MEDS ORDERED: Iohexol 350 MG/ML 50 ML Vial (for Rad Diag) IVCONTRAST ONE (09:45)
[2018-06-09] MEDS: Insulin NovoLOG Aspart Correctional Sugar Inj SQ SCH ×4 (11:23→20:06)
[2018-06-09] MEDS: rifAXIMin 550 MG Tablet PO SCH ×2 (11:23→20:06)
[2018-06-09] MEDS: Senna/Docusate Sodium 8.6/50 MG Tablet PO SCH ×2 (11:23→20:06)
[2018-06-09] MEDS: Nadolol 20 MG Tablet PO SCH ×2 (11:23→20:12)
[2018-06-09 11:41] LABS: ABG PCO2 35 mmHg (38-42); ABG PO2 66 mmHg (61-120)
--- NOTE | 2018-06-09 12:11 | P.CONCC ---
History of Present Illness Service: Critical care medicine Consult date: 06/09/18 Requesting Physician: Merlin Kemp Reason for Consult: hypoxia Primary Care Provider: Yaw Ugarte DO Family Provider: Yaw Ugarte DO Chief Complaint: Right upper quadrant abdominal pain History of Present Illness: 67yM with history of cirrhosis who presented with RUQ abdominal pain and found to have acute cholecystitis with sepsis. taken to IR for percutaneous cholecystostomy tube. Immediately post-procedure, began to have rigors, tachycardia, and acute hypoxia. rapid response called and taken emergently to ICU. I met patient on arrival to ICU. patient with subjective chills and obvious rigors. spo2 91% on NRB mask. patient denies chest pain. endorses shortness of breath. brief ROS limited by severity of acute illness, but otherwise negative. PMFSH - History History Provided By: Patient - Medical History Medical History: Medical History (Last Updated 06/08/18 @ 10:38 by Precious Cai) Cirrhosis Diabetes Hepatosplenomegaly History of alcohol abuse - Surgical History Surgical History: Surgical History (Last Updated 06/08/18 @ 10:37 by Precious Cai) History of arthroplasty of right knee History of hand surgery Hx of appendectomy - Family History Family History: Family History (Last Updated 06/08/18 @ 10:38 by Precious Cai) Father Cardiovascular disease Mother Diabetes - Tobacco History Second Hand Smoke Exposure: No Smoking Status: Never smoker - Alcohol History How Often Do You Have a Drink Containing Alcohol: 2 to 3 times a week - Substance Use History Substance History: Past History - Travel History History of Recent Travel: No Recent Travel in the [place] Within the Last 8 Weeks: No Recent Travel Out of the Country Within the Last 8 Weeks: No - Immunization History Tetanus Immunization: <5 Years Hx Influenza Vaccine This Season: No Medications and Allergies Active Medications: Active Medications Al Hydroxide/Mg Hydroxide (Milk Of Magnesia Liq) 30 ml PO Q12H PRN PRN Reason: Mild Constipation Bisacodyl (Dulcolax Supp) 10 mg RECTAL DAILY PRN PRN Reason: SEVERE CONSITIPATION Dextrose (D50w Vial) 50 ml IV.PUSH UNSCH PRN PRN Reason: PER HYPOGLYCEMIA PROTOCOL Last Admin: 06/08/18 12:18 Dose: 50 ml Glucagon (Glucagon Inj) 1 mg OTHER PRN PRN PRN Reason: for Hypoglycemia Protocol Potassium Chloride/Dextrose/Sod Cl (D5w/1/2ns + Kcl 20 Meq Inj) 1,000 mls @ 100 mls/hr IV.CONT .Q10H [facility] Last Admin: 06/09/18 11:51 Dose: 100 mls/hr Piperacillin/Tazobactam/Dextrose (Zosyn 4.5 Gm Premix) 4.5 gm in 100 mls @ 200 mls/hr IV.SIG Q6HR [facility] Last Admin: 06/09/18 11:51 Dose: 200 mls/hr Albumin Human (Flexbumin 25% Inj) 100 mls @ 60 mls/hr IV.SIG ONCE ONE Stop: 06/09/18 13:22 Insulin Aspart (Novolog Insulin Correctional Sugar Inj) 0 unit SQ ACHS [facility]; Protocol Last Admin: 06/09/18 11:23 Dose: Not Given Lactulose (Lactulose Liq) 30 ml PO DAILY PRN PRN Reason: SEVERE CONSITIPATION Levothyroxine Sodium (Synthroid) 100 mcg PO DAILY@0600 [facility] Last Admin: 06/09/18 05:45 Dose: Not Given Losartan Potassium (Cozaar) 50 mg PO DAILY [facility] Last Admin: 06/09/18 11:23 Dose: Not Given Morphine Sulfate (Morphine Inj) 2 mg IV.PUSH Q4H PRN PRN Reason: PAIN 6-10 Last Admin: 06/09/18 03:37 Dose: 2 mg Nadolol (Corgard) 20 mg PO BID [facility] Last Admin: 06/09/18 11:23 Dose: Not Given Ondansetron HCl (Zofran Inj) 4 mg IV.PUSH Q6H PRN PRN Reason: NAUSEA OR VOMITING Rifaximin (Xifaxan) 550 mg PO BID [facility] Last Admin: 06/09/18 11:23 Dose: Not Given Senna/Docusate Sodium (Tia-Colace) 1 tab PO BID [facility] Last Admin: 06/09/18 11:23 Dose: Not Given Sennosides (Senokot) 17.2 mg PO Q12H PRN PRN Reason: Moderate Constipation Sodium Chloride (Ns Flush) 2 ml IV.FLUSH PRN PRN PRN Reason: FLUSH AFTER USING IV ACCESS Allergies Allergy/AdvReac Type Severity Reaction Status Date / Time adhesive tape AdvReac Itching Verified 06/07/18 17:10 Home Medications Medication Instructions Recorded Confirmed Type glipizide 5 mg PO BID 06/07/18 06/07/18 History insulin glargine [Lantus U-100 30 unit SUB-Q HS 06/07/18 06/07/18 History Insulin] levothyroxine 100 mcg PO DAILY 06/07/18 06/07/18 History losartan 50 mg PO DAILY 06/07/18 06/07/18 History nadolol 200 mg PO BID 06/07/18 06/07/18 History pravastatin 80 mg PO DAILY 06/07/18 06/07/18 History rifaximin [Xifaxan] 550 mg PO BID 06/07/18 06/07/18 History Physical Exam Vital signs: Vital Signs 06/08/18 16:00 06/08/18 19:10 06/08/18 20:00 Temperature 36.7 C 37.6 C Pulse Rate 56 L 63 Respiratory Rate 18 18 20 Blood Pressure 126/77 142/89 H Pulse Oximetry 93 L 92 L 06/08/18 23:23 06/09/18 00:00 06/09/18 08:00 Temperature 37.1 C 37.1 C 37.6 C H Pulse Rate 57 L 61 57 L Respiratory Rate 20 20 17 Blood Pressure 136/80 128/67 138/69 Pulse Oximetry 94 L 91 L 90 L 06/09/18 09:30 06/09/18 09:45 06/09/18 10:15 Temperature 36.5 C Pulse Rate 52 L 55 L 58 L Respiratory Rate 22 18 17 Blood Pressure 150/80 H 117/85 122/72 Pulse Oximetry 92 L 93 L 95 Intake & Output 06/08/18 06/09/18 06/09/18 18:59 06:59 18:59 Intake Total 2200 / 2200 1300 / 1300 1000 / 1000 Balance 2200 / 2200 1300 / 1300 1000 / 1000 Weight 95.5 kg Intake: IV 1750 / 1750 1300 / 1300 1000 / 1000 D5W/1/2NS + KCL 20 mEq Inj 1, 1000 / 1000 1000 / 1000 000 ML @ 100 mls/hr IV.CONT . Q10H [facility] Rx#:[id number] NS Inj 1,000 ML @ 100 mls/hr IV 1550 / 1550 .CONT .Q10H [facility] Rx#:[id number] Zosyn 4.5 GM Premix 4.5 gm In 200 / 200 300 / 300 100 ml @ 200 mls/hr IV.SIG Q6HR [facility] Rx#:[id number] Oral 450 / 450 Other: # Voids 3 Date of Last Bowel Movement 05/30/18 06/03/18 Narrative: gen: middle-aged male, lying in bed in severe respiratory distress heent: nc. at. perrl. mmm. neck: no jvd. trachea midline. chest: NRB in place. spo2 91%. tachypneic. using accessory muscles. in distress. cv: tachycardic rate, regular rhythm. sinus. abd: soft, tender in RUQ. nondistended. drain in RUQ draining purulent fluid extr: trace edema. distal pulses 2+. warm. neuro: RASS 0. in distress. moves all extremities. no focal deficits. Septic Shock Reassessment Septic shock perfusion: reassessment completed Assessment and Plan - Assessment and Plan Plan: Assessment: 67yM with severe sepsis and vigorous SIRS response immediately post- procedure s/p percutaneous cholecystostomy tube. Most likely transient gram negative nati bacteremia during procedure leading to profound hypoxia and SIRS response. supportive care. may need intubation and mechanical ventilation if hypoxia worsens. continue iv abx. will use concentrated albumin as fluid resuscitation for SIRS in the setting of baseline severe hypoalbuminemia from cirrhosis. Critically ill and acutely decompensated SIRS/severe sepsis. Active Problems: Acute hypoxic respiratory failure SIRS/Severe sepsis Acute gram negative nati bacteremia Cirrhosis Acute cholecystitis Plan: wean o2 as tolerated continue zosyn 100mL 25% albumin watch in icu closely may need intubation with mechanical ventilation. abg Critical care time: 31 minutes, exclusive of separately billable procedures. acute diagnosis and management of acute hypoxemia.
[2018-06-09] MEDS ORDERED: Albumin Human 25% Inj 100 ML IV.SIG ONE (13:00)
--- NOTE | 2018-06-09 13:07 | IR ---
EXAM DATE: 06/09/2018 9:48 AM EDT AGE/SEX: 67 years / Male INDICATIONS: Patient presents with history of cirrhosis in need of cholecystectomy tube placement fo r drainage. CLINICAL DATA: This is the patient's initial encounter. Patient reports that signs and symptoms have been present for 1 week and indicates a pain score of 3/10. MEDICAL/SURGICAL HISTORY: . Cirrhosis, Diabetes, Hepatosplnomegaly, History of alcohol abuse. . Hand surgery, Arthroplasty of right knee. COMPARISON: No prior exams available for comparison. FLUORO TIME (min): 1.1 IMAGE SERIES: 3 SEDATION TIME (min): 30 CONTRAST (cc): 10cc Omnipaque (iohexol) 350 MEDICATION(S): 3 mg midazolam (Versed) IV 150 mcg fentanyl (Sublimaze) IV DEVICE(S): 8 Vietnamese All purpose drain 30cm [facility] . . PROCEDURE: 1. Ultrasound guided puncture of the gallbladder. 2. Percutaneous cholangiogram. 3. Percutaneous cholecystostomy tube placement. 4. Conscious sedation with continuous EKG and oximetry monitoring. The risks, benefits and alternatives to the procedure were explained and verbal and written consent w as obtained. The site was prepped in sterile fashion. Full sterile technique was used, including ca p, mask, sterile gloves and gown and a large sterile sheet. Hand hygiene and 2% chlorhexidine and/or betadine/alcohol prep was utilized per protocol for cutaneous antisepsis. Sterile gel and sterile p robe cover were utilized for ultrasound guidance. The skin and subcutaneous tissues were infiltrated with local anesthetic solution. With ultrasound and fluoroscopic guidance the gallbladder was punctured with a micropuncture set and a 4 Vietnamese dilator was placed. Injection of positive contrast demonstrates position within the gallb ladder. A 0.035 guidewire was placed within the gallbladder lumen and dilatation was performed to ac cept the prescribed catheter. Approximately 40 cc of purulent fluid was removed immediately following catheter placement. Sample was submitted for Gram stain and C&S. Conscious sedation was performed with the prescribed dosages and duration as above in the presence of an independent trained radiology nurse to assist in the monitoring of the patient. EKG and oximetry remained stable throughout the procedure. The patient tolerated the procedure well and there were n o complications. The patient was sent to post anesthesia recovery in stable condition. CONCLUSION: 1. Uncomplicated percutaneous cholecystostomy as above. Electronically signed by: Rene Martin MD 06/09/2018 1:05 PM EDT
--- NOTE | 2018-06-09 14:34 | P.PNGS ---
Subjective Interval history: Had jaz tube placed this am with purulent output. His pain is much better now. He had shivering and chills earlier and was transferred to [facility]. Vitals are stable. Physical Exam Vital signs: Vital Signs 06/08/18 16:00 06/08/18 19:10 06/08/18 20:00 Temperature 98.1 F 99.6 F Pulse Rate 56 L 63 Respiratory Rate 18 18 20 Blood Pressure 126/77 142/89 H Pulse Oximetry 93 L 92 L 06/08/18 23:23 06/09/18 00:00 06/09/18 08:00 Temperature 98.8 F 98.8 F 99.7 F H Pulse Rate 57 L 61 57 L Respiratory Rate 20 20 17 Blood Pressure 136/80 128/67 138/69 Pulse Oximetry 94 L 91 L 90 L 06/09/18 09:30 06/09/18 09:45 06/09/18 10:15 Temperature 97.7 F Pulse Rate 52 L 55 L 58 L Respiratory Rate 22 18 17 Blood Pressure 150/80 H 117/85 122/72 Pulse Oximetry 92 L 93 L 95 Intake & Output 06/08/18 06/09/18 06/09/18 18:59 06:59 18:59 Intake Total 2200 / 2200 1300 / 1300 1100 / 1100 Balance 2200 / 2200 1300 / 1300 1100 / 1100 Weight 95.5 kg Intake: IV 1750 / 1750 1300 / 1300 1100 / 1100 D5W/1/2NS + KCL 20 mEq Inj 1, 1000 / 1000 1000 / 1000 000 ML @ 100 mls/hr IV.CONT . Q10H [facility] Rx#:[id number] NS Inj 1,000 ML @ 100 mls/hr IV 1550 / 1550 .CONT .Q10H [facility] Rx#:[id number] Zosyn 4.5 GM Premix 4.5 gm In 200 / 200 300 / 300 100 / 100 100 ml @ 200 mls/hr IV.SIG Q6HR [facility] Rx#:[id number] Oral 450 / 450 Other: # Voids 3 Date of Last Bowel Movement 05/30/18 06/05/18 Narrative: No distress Abd: soft, jaz tube in place with clear/reddish bilious drainage Assessment and Plan - Assessment (1) Acute cholecystitis Code(s): K81.0 - Acute cholecystitis Status: Acute (2) Cirrhosis Code(s): K74.60 - Unspecified cirrhosis of liver Status: Acute - Plan Jaz tube in place. Continue to drainage. Continue IV antibiotics. Start clears. CBC in am. Cirrhosis secondary to alcohol abuse. I had a long discussion with the patient and his and son regarding the necessity of complete abstinence from ETOH as well as tylenol.
[2018-06-10] MEDS: Morphine Inj 4 MG/ML Vial IV.PUSH PRN ×3 (04:01→17:15)
[2018-06-10 04:18] LABS: Hematocrit 29.3 % (39.0-51.0); Hemoglobin 10.4 gm/dL (13.0-17.0); Mean Corpuscular HGB Conc 35.6 % (32.0-36.0); Mean Corpuscular Hemoglobin 34.3 pg (27.0-34.0); Mean Corpuscular Volume 96.4 fL (80.0-100.0); Mean Platelet Volume 10.6 fL (7.0-11.0); Platelet Count 115 th/mm3 (150-450); Red Blood Count 3.04 mil/mm3 (4.50-5.90); Red Cell Distribution Width 13.4 % (11.6-17.2); White Blood Count 8.7 th/mm3 (4.0-11.0)
[2018-06-10 04:46] LABS: Alanine Aminotransferase 38 U/L (12-78)
[2018-06-10 04:48] LABS: Alkaline Phosphatase 100 U/L (45-117); Total Protein 6.5 g/dL (6.4-8.2)
[2018-06-10 04:49] LABS: Albumin 2.8 g/dL (3.4-5.0); Anion Gap 10 meq/L (5-15); Aspartate Aminotransferase 43 U/L (15-37); Blood Urea Nitrogen 14 mg/dL (7-18); Calcium 7.7 mg/dL (8.5-10.1); Carbon Dioxide 20.6 meq/L (21.0-32.0); Chloride 108 meq/L (98-107); Glomerular Filtration Rate 63 mL/min (>89); Glucose,Random 134 mg/dL (74-106); Potassium 3.8 meq/L (3.5-5.1); Sodium 139 meq/L (136-145)
[2018-06-10] MEDS: Piperacil/Tazo 4.5 GM Premix 4.5 GM/100 ML BAG IV.SIG SCH ×4 (05:05→23:11)
[2018-06-10] MEDS: Levothyroxine 100 MCG Tablet PO SCH (05:05)
[2018-06-10 05:36] LABS: Eosinophils 6 % (0-4); Lymphocytes 21 % (9-44); Monocytes 12 % (0-8)
[2018-06-10] MEDS: Insulin NovoLOG Aspart Correctional Sugar Inj SQ SCH ×4 (08:24→20:54)
[2018-06-10] MEDS: rifAXIMin 550 MG Tablet PO SCH ×2 (08:26→20:47)
[2018-06-10] MEDS: Senna/Docusate Sodium 8.6/50 MG Tablet PO SCH ×2 (08:26→20:46)
[2018-06-10] MEDS: Nadolol 20 MG Tablet PO SCH ×2 (08:26→20:49)
[2018-06-10] MEDS: KCL 20 mEq/D5W/NaCl 0.45% Inj 1,000 ML IV.CONT SCH ×3 (08:42→20:49)
--- NOTE | 2018-06-10 11:57 | P.PNGS ---
Subjective Interval history: He feels much better. Tolerating clears. No nausea. Pain at drain site. WBC now normal. Physical Exam Vital signs: Vital Signs 06/09/18 12:00 06/09/18 14:00 06/09/18 16:00 Temperature 97.6 F 98.1 F Pulse Rate 66 56 L 54 L Respiratory Rate 23 20 Blood Pressure 128/68 112/77 Pulse Oximetry 99 93 L 06/09/18 16:01 06/09/18 18:00 06/09/18 19:38 Temperature Pulse Rate 54 L 55 L Respiratory Rate Blood Pressure Pulse Oximetry 94 L 06/09/18 20:00 06/10/18 00:00 06/10/18 04:00 Temperature 98.7 F 98.5 F 98.5 F Pulse Rate 62 54 L 52 L Respiratory Rate 18 18 18 Blood Pressure 145/66 H 158/78 H 113/55 L Pulse Oximetry 96 93 L 94 L 06/10/18 04:40 06/10/18 08:00 06/10/18 08:02 Temperature 97.6 F Pulse Rate 68 Respiratory Rate 18 20 Blood Pressure 131/89 Pulse Oximetry 96 96 Intake & Output 06/09/18 06/10/18 06/10/18 18:59 06:59 18:59 Intake Total 1680 / 1680 1780 / 1780 1000 / 1000 Output Total 650 / 650 715 / 715 Balance 1030 / 1030 1065 / 1065 1000 / 1000 Weight 99.8 kg Intake: IV 1200 / 1200 1300 / 1300 1000 / 1000 D5W/1/2NS + KCL 20 mEq Inj 1, 1000 / 1000 1000 / 1000 1000 / 1000 000 ML @ 100 mls/hr IV.CONT . Q10H [facility] Rx#:[id number] Flexbumin 25% Inj 100 ML @ 60 100 / 100 mls/hr IV.SIG ONCE ONE Rx#: [id number] Zosyn 4.5 GM Premix 4.5 gm In 100 / 100 300 / 300 100 ml @ 200 mls/hr IV.SIG Q6HR [facility] Rx#:[id number] Oral 480 / 480 480 / 480 Output: Urine 500 / 500 600 / 600 Wound Drainage 150 / 150 115 / 115 Right Anterior Abdomen 150 / 150 115 / 115 Other: Date of Last Bowel Movement 06/05/18 06/05/18 06/05/18 Narrative: NAD Abd: soft, mild distention, jaz tube with bilious slightly red drainage Assessment and Plan - Assessment (1) Acute cholecystitis Code(s): K81.0 - Acute cholecystitis Status: Acute (2) Cirrhosis Code(s): K74.60 - Unspecified cirrhosis of liver Status: Acute - Plan Jaz tube in place. Continue to drainage. Improving. Recheck CBC in am as H/H decreased. Start diet. If he continues to do well tomorrow could be discharged from my standpoint. Will need [facility] for jaz tube drain. Recommend 5-7 days of levaquin/flagyl PO at home. F/u with me in two weeks.
--- NOTE | 2018-06-10 15:14 | P.PN ---
Subjective Interval history: This is a pleasant 67 y/o Male with Cirrhosis, who came to ER with RUQ abdominal pain, found to have acute cholecystitis with sepsis. taken to IR for percutaneous cholecystostomy tube. Immediately post-procedure, began to have rigors, tachycardia, and acute hypoxia. rapid response called and taken emergently to ICU. I met patient on arrival to ICU. patient with subjective chills and obvious rigors. spo2 91% on NRB mask. Improved with supportive care, patient improving as per General Surgery okay to discharge tomorrow and continue antibiotics, Levaquin versus Cipro. he has DM II, alcohol abuse Stable seen in his bedroom and discussed with nurse. no complaint no nausea, vomit or diarrhea. Physical Exam Vital signs: Vital Signs 06/09/18 16:00 06/09/18 16:01 06/09/18 18:00 Temperature 98.1 F Pulse Rate 54 L 54 L 55 L Respiratory Rate 20 Blood Pressure 112/77 Pulse Oximetry 93 L 06/09/18 19:38 06/09/18 20:00 06/10/18 00:00 Temperature 98.7 F 98.5 F Pulse Rate 62 54 L Respiratory Rate 18 18 Blood Pressure 145/66 H 158/78 H Pulse Oximetry 94 L 96 93 L 06/10/18 04:00 06/10/18 04:40 06/10/18 08:00 Temperature 98.5 F 97.6 F Pulse Rate 52 L 68 Respiratory Rate 18 18 20 Blood Pressure 113/55 L 131/89 Pulse Oximetry 94 L 96 06/10/18 08:02 06/10/18 12:00 Temperature 98 F Pulse Rate 52 L Respiratory Rate 16 Blood Pressure 131/68 Pulse Oximetry 96 93 L Intake & Output 06/09/18 06/10/18 06/10/18 18:59 06:59 18:59 Intake Total 1680 / 1680 1780 / 1780 1100 / 1100 Output Total 650 / 650 715 / 715 Balance 1030 / 1030 1065 / 1065 1100 / 1100 Weight 99.8 kg Intake: IV 1200 / 1200 1300 / 1300 1100 / 1100 D5W/1/2NS + KCL 20 mEq Inj 1, 1000 / 1000 1000 / 1000 1000 / 1000 000 ML @ 100 mls/hr IV.CONT . Q10H [facility] Rx#:[id number] Flexbumin 25% Inj 100 ML @ 60 100 / 100 mls/hr IV.SIG ONCE ONE Rx#: [id number] Zosyn 4.5 GM Premix 4.5 gm In 100 / 100 300 / 300 100 / 100 100 ml @ 200 mls/hr IV.SIG Q6HR [facility] Rx#:[id number] Oral 480 / 480 480 / 480 Output: Urine 500 / 500 600 / 600 Wound Drainage 150 / 150 115 / 115 Right Anterior Abdomen 150 / 150 115 / 115 Other: Date of Last Bowel Movement 06/05/18 06/05/18 06/05/18 Narrative: gen: no acute distress. heent: nc. at. perrl. neck: no jvd. trachea midline. chest: Clear to auscultation bilateral, no wheezing or crackles. cv: Regular rate and rhythm. abd: soft, tender in RUQ. nondistended. drain in RUQ draining purulent fluid extr: trace edema. distal pulses 2+. warm. neuro: RASS 0. in distress. moves all extremities. no focal deficits. Results - Labs CBC & Chem 7: 06/10/18 03:37 06/10/18 03:37 Laboratory Results - last 24 hr 06/09/18 06/09/18 06/09/18 18:05 18:06 19:55 WBC RBC Hgb Hct MCV MCH MCHC RDW Plt Count MPV Prelim Diff (Auto) WBC Differential Seg Neuts % (Manual) Band Neuts % (Manual) Lymphocytes % (Manual) Monocytes % (Manual) Eosinophils % (Manual) Basophils % (Manual) Abs Neuts (Manual) Differential Comment Platelet Estimate Platelet Morphology Sodium Potassium Chloride Carbon Dioxide Anion Gap BUN Creatinine Estimated GFR POC Glucose 185 H 264 H Random Glucose Calcium Total Bilirubin AST ALT Alkaline Phosphatase Total Protein Albumin Nasal Screen MRSA (PCR) Not detected 06/10/18 06/10/18 06/10/18 03:37 03:37 08:15 WBC 8.7 RBC 3.04 L Hgb 10.4 L Hct 29.3 L MCV 96.4 MCH 34.3 H MCHC 35.6 RDW 13.4 Plt Count 115 L MPV 10.6 Prelim Diff (Auto) Manual diff required WBC Differential Manual diff final Seg Neuts % (Manual) 56 Band Neuts % (Manual) 4 Lymphocytes % (Manual) 21 Monocytes % (Manual) 12 H Eosinophils % (Manual) 6 H Basophils % (Manual) 1 Abs Neuts (Manual) 5.2 Differential Comment . Platelet Estimate Low L Platelet Morphology Enlarged H Sodium 139 Potassium 3.8 Chloride 108 H Carbon Dioxide 20.6 L Anion Gap 10 BUN 14 Creatinine 1.15 Estimated GFR 63 L POC Glucose 162 H Random Glucose 134 H Calcium 7.7 L Total Bilirubin 2.1 H AST 43 H ALT 38 Alkaline Phosphatase 100 Total Protein 6.5 D Albumin 2.8 L Nasal Screen MRSA (PCR) Microbiology 06/09/18 09:09 Fluid - Bile Fluid Gram Stain - Final 06/09/18 09:09 Fluid - Bile Fluid Body Fluid Culture - Preliminary gram negative rods Assessment and Plan - Assessment (1) Cholecystitis Code(s): K81.9 - Cholecystitis, unspecified Status: Acute (2) Cirrhosis Code(s): K74.60 - Unspecified cirrhosis of liver Status: Acute (3) Hepatosplenomegaly Code(s): R16.2 - Hepatomegaly with splenomegaly, not elsewhere classified Status: Acute (4) History of alcohol abuse Code(s): Z87.898 - Personal history of other specified conditions Status: Acute (5) Diabetes type 2, controlled Code(s): E11.9 - Type 2 diabetes mellitus without complications Status: Acute - Plan Assessment: 67yM with severe sepsis and vigorous SIRS response immediately post- procedure s/p percutaneous cholecystostomy tube. Most likely transient gram negative nati bacteremia during procedure leading to profound hypoxia and SIRS response. supportive care. may need intubation and mechanical ventilation if hypoxia worsens. continue iv abx. will use concentrated albumin as fluid resuscitation for SIRS in the setting of baseline severe hypoalbuminemia from cirrhosis. Critically ill and acutely decompensated SIRS/severe sepsis. Active Problems: Acute hypoxic respiratory failure Improved. SIRS/Severe sepsis Acute gram negative nati bacteremia Cirrhosis Acute cholecystitis status post Cholecystostomy tube as per surgery continue to drain recommended 5 - 7 days of Levaquin versus Flagyl follow in two weeks. start diet. Critical care time: 31 minutes, exclusive of separately billable procedures. acute diagnosis and management of acute hypoxemia. Code Status: Full code. Discussed Condition With: Patient and Nurse. Discharge Planning: expected for tomorrow.
[2018-06-11] MEDS: KCL 20 mEq/D5W/NaCl 0.45% Inj 1,000 ML IV.CONT SCH (04:42)
[2018-06-11] MEDS: Piperacil/Tazo 4.5 GM Premix 4.5 GM/100 ML BAG IV.SIG SCH ×2 (06:07→06:10)
[2018-06-11] MEDS: Levothyroxine 100 MCG Tablet PO SCH (06:12)
[2018-06-11] MEDS: Senna/Docusate Sodium 8.6/50 MG Tablet PO SCH ×2 (09:20→22:52)
[2018-06-11] MEDS: rifAXIMin 550 MG Tablet PO SCH ×2 (09:20→22:52)
[2018-06-11] MEDS: Nadolol 20 MG Tablet PO SCH ×2 (09:20→22:51)
[2018-06-11] MEDS: Insulin NovoLOG Aspart Correctional Sugar Inj SQ SCH ×4 (09:21→23:23)
--- NOTE | 2018-06-11 11:11 | P.PN ---
Subjective Interval history: Follow-up for acute cholecystitis status post cholecystostomy tube placement. Patient is currently doing well. However he complained of dyspnea today. No fever or chills. He is requiring 2 L of oxygen via nasal cannula. Physical Exam Vital signs: Vital Signs 06/10/18 12:00 06/10/18 16:00 06/10/18 17:17 Temperature 98 F 97.9 F Pulse Rate 52 L 57 L Respiratory Rate 16 18 18 Blood Pressure 131/68 149/98 H Pulse Oximetry 93 L 93 L 06/10/18 20:00 06/10/18 20:20 06/11/18 00:00 Temperature 98.6 F 97.9 F Pulse Rate 57 L 56 L Respiratory Rate 18 18 Blood Pressure 142/75 H 140/77 Pulse Oximetry 93 L 95 93 L 06/11/18 08:00 Temperature 96.9 F L Pulse Rate 52 L Respiratory Rate 20 Blood Pressure 148/74 H Pulse Oximetry 95 Intake & Output 06/10/18 06/11/18 06/11/18 18:59 06:59 18:59 Intake Total 3160 / 3160 1360 / 1360 Output Total 520 / 520 700 / 700 Balance 2640 / 2640 660 / 660 Weight 99.7 kg Intake: IV 2200 / 2200 1300 / 1300 D5W/1/2NS + KCL 20 mEq Inj , 1999 / 1999 1000 / 1000 000 ML @ 100 mls/hr IV.CONT . Q10H [facility] Rx#:[id number] Zosyn 4.5 GM Premix 4.5 gm In 200 / 200 300 / 300 100 ml @ 200 mls/hr IV.SIG Q6HR [facility] Rx#:[id number] Oral 960 / 960 60 / 60 Output: Urine 450 / 450 700 / 700 Wound Drainage 70 / 70 Right Anterior Abdomen 70 / 70 Other: # Voids 3 Date of Last Bowel Movement 06/05/18 06/05/18 # Bowel Movements 0 Narrative: GENERAL: Alert, oriented 3, NAD. SKIN: Warm and dry. HEAD: Normocephalic. EYES: No scleral icterus. No injection or drainage. NECK: Supple, trachea midline. No JVD or lymphadenopathy. CARDIOVASCULAR: Regular rate and rhythm without murmurs, gallops, or rubs. RESPIRATORY: Moderate air entry, bibasilar crackles. No appreciable wheezes. GASTROINTESTINAL: Abdomen soft, non-tender, nondistended. MUSCULOSKELETAL: No cyanosis, or edema. BACK: Nontender without obvious deformity. No CVA tenderness. Results - Labs CBC & Chem 7: 06/10/18 03:37 06/10/18 03:37 Laboratory Results - last 24 hr 06/10/18 06/10/18 06/11/18 17:06 20:45 07:57 POC Glucose 161 H 149 H 146 H Microbiology 06/09/18 09:09 Fluid - Bile Fluid Gram Stain - Final 06/09/18 09:09 Fluid - Bile Fluid Body Fluid Culture - Final Escherichia coli Assessment and Plan - Assessment (1) Cholecystitis Code(s): K81.9 - Cholecystitis, unspecified Status: Acute (2) Cirrhosis Code(s): K74.60 - Unspecified cirrhosis of liver Status: Acute (3) Hepatosplenomegaly Code(s): R16.2 - Hepatomegaly with splenomegaly, not elsewhere classified Status: Acute (4) History of alcohol abuse Code(s): Z87.898 - Personal history of other specified conditions Status: Acute (5) Diabetes type 2, controlled Code(s): E11.9 - Type 2 diabetes mellitus without complications Status: Acute - Plan This is a pleasant 67-year-old male patient with: Acute cholecystis -Patient presented with complaints of right upper quadrant pain x 4 days as well as subjective fever of 101 at home. -Abdominal/pelvis CT reviewed showing chronic liver disease and cirrhosis, mild ascites, sharon hepatis lymphadenopathy, splenomegaly and mesenteric vascular congestion. -Patient underwent cholecystostomy tube placement by interventional radiology. -General surgery recommends antibiotics for 5-7 days and follow-up with the outpatient setting. Probable pneumonia -Chest x-ray on 06/11/2018 shows patchy bilateral airspace disease. -We will switch Zosyn to Levaquin and Flagyl. -Start incentive spirometry. -We will obtain a home oxygen walk test History of cirrhosis and hepatosplenomegaly History of alcohol abuse -Will continue on home medications including nadolol, rifaximin. -Supportive care. Type 2 diabetes mellitus, controlled and chronic -Continue Levemir 7 units nightly and sliding scale insulin. -Hold home glipizide. Hypothyroidism: Will continue home thyroxine. Full code. SCDs.
--- NOTE | 2018-06-11 11:42 | XR ---
EXAM DATE: 06/11/2018 11:30 AM EDT AGE/SEX: 67 years / Male INDICATIONS: Dyspnea. CLINICAL DATA: This is the patient's subsequent encounter. Patient reports that signs and symptoms h ave been present for 3 days and indicates a pain score of 0/10. MEDICAL/SURGICAL HISTORY: . Cirrhosis. Diabetic. Hepatosplenomegaly. . Right knee surgery. Thapa d surgery. Appendectomy. COMPARISON: POI, XR CHEST PA AND LAT, 06/22/2015. . FINDINGS: There are patchy parenchymal infiltrates and mild interstitial prominence. Cardiomegaly. Degenerative changes of the spine. CONCLUSION: Patchy bilateral airspace disease. Electronically signed by: Jack Aguero MD 06/11/2018 11:40 AM EDT
[2018-06-11] MEDS: levoFLOXacin 750 MG Tablet PO SCH (14:36)
[2018-06-11] MEDS: metroNIDAZOLE 500 MG Tablet PO SCH ×2 (14:37→22:51)
[2018-06-11] MEDS ORDERED: Insulin Detemir Inj 1,000 UNIT/10 ML Vial SQ SCH (21:00)
[2018-06-12] MEDS: Levothyroxine 100 MCG Tablet PO SCH (05:56)
[2018-06-12] MEDS: metroNIDAZOLE 500 MG Tablet PO SCH ×2 (05:56→15:36)
[2018-06-12 06:33] LABS: Baso % (Auto) 0.5 % (0.0-2.0); Eos # (Auto) 0.9 th/mm3 (0.0-0.4); Eos % (Auto) 10.2 % (0.0-4.0); Hematocrit 32.9 % (39.0-51.0); Hemoglobin 11.9 gm/dL (13.0-17.0); Lymph # (Auto) 1.5 th/mm3 (1.0-4.8); Lymph % (Auto) 16.9 % (9.0-44.0); Mean Corpuscular Hemoglobin 35.3 pg (27.0-34.0); Mean Platelet Volume 9.6 fL (7.0-11.0); Mono # (Auto) 1.3 th/mm3 (0.0-0.9); Mono % (Auto) 14.7 % (0.0-8.0); Neut # (Auto) 5.4 th/mm3 (1.8-7.7); Neut % (Auto) 57.7 % (16.0-70.0); Platelet Count 151 th/mm3 (150-450); Red Blood Count 3.36 mil/mm3 (4.50-5.90); Red Cell Distribution Width 12.8 % (11.6-17.2); White Blood Count 9.1 th/mm3 (4.0-11.0)
[2018-06-12 06:41] LABS: Potassium 3.9 meq/L (3.5-5.1)
[2018-06-12 06:42] LABS: Mean Corpuscular HGB Conc 36.1 % (32.0-36.0)
[2018-06-12 06:44] LABS: Calcium 8.7 mg/dL (8.5-10.1)
[2018-06-12 06:45] LABS: Carbon Dioxide 24.2 meq/L (21.0-32.0)
[2018-06-12 07:28] LABS: Platelet Estimate Normal (Normal); Platelet Morphology Normal (Normal)
[2018-06-12] MEDS: Insulin NovoLOG Aspart Correctional Sugar Inj SQ SCH ×2 (07:48→12:29)
[2018-06-12] MEDS: Senna/Docusate Sodium 8.6/50 MG Tablet PO SCH (09:12)
[2018-06-12] MEDS: levoFLOXacin 750 MG Tablet PO SCH (09:13)
[2018-06-12] MEDS: rifAXIMin 550 MG Tablet PO SCH (09:13)
[2018-06-12] MEDS: Nadolol 20 MG Tablet PO SCH (09:13)
[2018-06-12 09:14] VITALS: PULSE 48; TEMP 97.7
[2018-06-12 12:50] VITALS: BP 158/68; RESP 14
[2018-06-12 14:51] VITALS: O2SAT 94
--- NOTE | 2018-06-13 10:21 | P.DCO ---
- Physical Therapy Order: Evaluate and treat, Improve ambulation, Strength and gait training - Home Health Nursing Order: Medical education, Signs/symptoms of disease process, Diabetic education , Medication education-adverse effect, Wound care and dressing changes, Nursing assessment with vital signs - Certification I have seen patient Ranjit Lee on 06/13/18. My clinical findings support the need for the requested home health care services because: Limited mobility due to disease progression, Patient has SOB, Deconditioned with increased weakness, Limited ability to care for self, High risk of falls, Infection with risk of complications I certify that my clinical findings support that this patient is homebound because: Post-op weakness, Unsteady gait/balance, Need for psychosocial assistance, Non- ambulatory: confined to bed or chair, Unable to use public transportation
--- NOTE | 2018-06-13 10:21 | P.DS ---
Date of admission: 06/07/18 20:29 Primary care physician: Yaw Ugarte DO Brief History from admission: This is a 67-year-old male patient with a known medical history of cirrhosis and hepatosplenomegaly with history of heavy alcohol abuse who presented to the ED with complaints of right upper quadrant abdominal pain. Patient states around Saturday morning after he ate some eggs with butter he developed a sudden right upper quadrant pain. He states that he been unable to eat for the past 4 days without significant pain and associated nausea. He denies any vomiting. Patient does admit to fever at home of 101 at its max. Does state he was evaluated by his PCP, Dr. Ugarte, on Saturday when at that time he was told this may be a gallbladder issue. At that time he was sent home and encouraged to come to the emergency room if abdominal pain persisted. Denies any recent antibiotic use. Patient denies any recent black or bloody stools. Last colonoscopy was 2 years ago with findings significant for polyps. Patient does admit to history of cirrhosis and hepatosplenomegaly secondary to history of chronic alcohol abuse. Patient does follow with Dr. Garcia for his chronic liver disease and actually has a colonoscopy scheduled for June. He states he has cut down his alcohol to 3 glasses per week. Patient denies any recent illness including chest pain, chills, cough, shortness breath, diarrhea or dysuria. Upon presentation an abdominal/pelvis CT was done showing concern for acute cholecystitis. General surgery has been consulted for evaluation. DS: Diagnosis - Discharge Diagnosis (1) Cholecystitis Status: Acute (2) Cirrhosis Status: Acute (3) Hepatosplenomegaly Status: Acute (4) History of alcohol abuse Status: Acute (5) Diabetes type 2, controlled Status: Acute DS: Medications - Discharge Medications Prescriptions: glimepiride 2 mg PO QAM #30 tab insulin aspart U-100 [Novolog U-100 Insulin aspart] 1 sliding scale dose SUB-Q UD 30 Days ml insulin glargine [Lantus U-100 Insulin] 5 unit SUB-Q HS 30 Days #1.5 ml levofloxacin 750 mg PO DAILY #6 tab metronidazole 500 mg PO Q8HR #18 tab nadolol 40 mg PO DAILY 30 Days #60 tab tramadol [Ultram] 50 mg PO Q6H PRN #12 tab PRN Reason: Pain 5-10 DS: Summary Hospital Course: This is a pleasant 67-year-old male patient with: Acute cholecystis -Patient presented with complaints of right upper quadrant pain x 4 days as well as subjective fever of 101 at home. -Abdominal/pelvis CT reviewed showing chronic liver disease and cirrhosis, mild ascites, sharon hepatis lymphadenopathy, splenomegaly and mesenteric vascular congestion. -Patient underwent cholecystostomy tube placement by interventional radiology. -General surgery recommends antibiotics for 5-7 days and follow-up with the outpatient setting. Probable pneumonia -Chest x-ray on 06/11/2018 shows patchy bilateral airspace disease. -We will switch Zosyn to Levaquin and Flagyl. -Start incentive spirometry. -home oxygen walk test --> no need for home O2. History of cirrhosis and hepatosplenomegaly History of alcohol abuse -Will continue on home medications including nadolol, rifaximin. -Supportive care. Type 2 diabetes mellitus, controlled and chronic -We had a long discussion about patient's diabetic medications. After discussing with patient and his , we decided on the following: Pt will continue Metformin and take Glimepiride 2mg Qday. If BG is not controlled, Glimepiride can be up-titrated. If BG is still not controlled, long acting insulin can be considered. Lantus low dose would be preferable to start. Rx given for Lantus and Aspart sliding scale insulin - only to be used if Oral medication does not control DM Patient is strongly advised to work with his PCP to fine tune his medications. Hypothyroidism: Will continue home thyroxine. - Time Spent with Patient Total time spent providing and/or coordinating discharge services: Greater than 30 minutes - Quality: VTE Deep Vein Thrombosis/Pulmonary Embolism Present on Admission: No Exam Vital signs: Vital Signs 06/12/18 12:48 06/12/18 14:51 Temperature 97.7 F Pulse Rate 48 L Respiratory Rate 14 Blood Pressure 158/68 H Pulse Oximetry 95 94 L Intake & Output 06/12/18 06/13/18 06/13/18 18:59 06:59 18:59 Output Total 50 / 50 Balance -50 / -50 Output: Wound Drainage 50 / 50 Right Anterior Abdomen 50 / 50 Results Procedures completed during hospitalization: Cholecystostomy tube placement. Labs on day of discharge: Labs from last 24 hours 06/12/18 06/12/18 14:00 11:20 POC Glucose [address] C. diff Tox Epid 027 Negative C. difficile (PCR) Negative - Impressions ITS Impressions Abdomen/Pelvis CT 06/07/18 17:40 CONCLUSION: 1. Abnormal hepatic texture characteristic of chronic parenchymal liver disease possibly cirrhosis. 2. Free fluid along the anterolateral margin of the liver characteristic of mild ascites. 3. Sharon hepatis lymphadenopathy 4. Distended gallbladder with mild pericholecystic inflammation. Acute cholecystitis needs to be considered. 5. Splenomegaly 6. Mesenteric vascular congestion and mild of adenopathy Liver Ultrasound 06/08/18 00:00 CONCLUSION: 1. Common bile duct is dilated in its visualized portions although no focal intraductal abnormality is noted by ultrasound. MRCP examination may be performed for better evaluation of the common bile duct and to identify potential etiology of distal CBD obstruction. 2. Distended gallbladder containing debris with gallbladder wall thickening and pericholecystic fluid. Findings are consistent with acute cholecystitis in the appropriate clinical setting. 3. Cirrhotic liver with trace ascites. Percutaneous Cholangiogram 06/09/18 07:00 CONCLUSION: 1. Uncomplicated percutaneous cholecystostomy as above. Chest X-Ray 06/11/18 00:00 CONCLUSION: Patchy bilateral airspace disease. Discharge Plan - Discharge Disposition Patient Disposition: 01 Discharge Home - Discharge Condition Condition: Good - Discharge Order Discharge Orders: Discharge Order (Routine); Ordered 06/12/18 Ordered By: Farhat Babcock - Discharge Details Anticipated Discharge Date: 06/12/18 - Physicians Team Primary Care Provider: Yaw Ugarte Attending Provider: Farhat Babcock Other Providers: Samy Mata MD ; Floyd Chaney MD
== END 2018-06-12 15:25 | disposition home or self-care (01) ==
LOC: PHED 16:55 → PHEDA 20:29 → PH3 22:47 → N03 22:53 → N07 06-08 22:17 → N03 06-09 11:30 → UNDODISIN 06-10 15:23 → PH3 06-10 16:02
PROVIDERS: ADMIT Hospitalist; ATTEND Hospitalist